=== PATIENT | female | born 1985 | race Caucasian/White ===

== ENCOUNTER 2020-06-22 08:49 | Emergency (ER) | payer OTHER, SELFPAY ==
[2020-06-22 08:57] VITALS: BP 118/70; PULSE 75; RESP 16; TEMP 36.7; O2SAT 100; BMI 21.2
--- NOTE | 2020-06-22 09:16 | XR_ITS ---
EXAMINATION: LEFT WRIST CLINICAL INFORMATION: Fell 3 days ago COMPARISON: None TECHNIQUE: 4 view left wrist FINDINGS: There is no evidence of acute fracture or dislocation of the left wrist. No significant soft tissue swelling appreciated. IMPRESSION: No evidence of fracture or dislocation of the left wrist.
--- NOTE | 2020-06-22 09:17 | ED_ITS ---
HPI - Extremity Problem General Chief complaint: Extremity Injury, Upper Stated complaint: fall l wrist inj Time Seen by Provider: 06/22/20 09:13 Source: patient Mode of arrival: ambulatory Limitations: no limitations History of Present Illness HPI Narrative: Patient states she fell backwards off of a hoverboard 3 days ago landing on her left hand, LINO. She has been icing it and taking ibuprofen but still has extreme pain and difficulty moving her wrist and her hand. She is able to move her fingers and has good sensation in them. She did not hit her head, no LOC. MD Complaint: extremity pain Onset (ago): day(s) Pain Consistency: constant Location: left and upper extremity Severity scale (1-10): 8 Quality: dull and constant Radiation: none Relieving factors: immobilization Exacerbating factors: range of motion and palpation Associated symptoms: denies other symptoms Related Data Allergies Allergy/AdvReac Type Severity Reaction Status Date / Time No Known Allergies Allergy Verified 06/22/20 09:00 Review of Systems Review of Systems: Constitutional: No Fatigue, No Malaise Musculoskeletal: see HPI Skin: No Skin Lesions, No rash, no bruising Neuro: No Weakness, No Numbness, No Paresthesias, No Loss of Consciousness, No Dizziness, No Headache Yes all other systems are reviewed and are negative [facility] Past Medical History Medical History No known health problems Social History Social History Advance Directives: No Advance Directives Information Provided: No Physical Exam Vital Signs: Vital Signs: Vital Signs Temp Pulse Resp BP Pulse Ox 06/22/20 08:57 98.0 F 75 16 118/70 100 Body Mass Index 21.2 Const: General: cooperative, healthy appearing, comfortable, no acute distress and well developed Orientation/consciousness: patient oriented x3 Limitations: no limitations HENMT: Head: Yes normal to inspection Eyes: General: appearance normal, both eyes and all related structures Neck: Neck: Yes normal visual inspection and Yes full ROM Resp: Effort & Inspection: normal respiratory effort and able to speak in complete sentences Skin: General skin exam: no rashes or lesions noted and no ecchymosis Neuro: General: patient oriented x3 Extrem: General: No normal to inspection (left wrist visibly swollen), No full ROM (unable to pronate, supinate left wrist, TTP of Left hand wrist& forearm, ), Yes capillary refill normal and Yes no clubbing, cyanosis or edema Course Course Course Narrative: Patient is a 34-year-old female who fell backwards on her left hand and the FOOSH style 3 days ago, unable to move wrist, will get x-rays of left forearm a wrist and hand. Reviewed alternating ibuprofen and Tylenol for pain relief with patient. MDM - Extremity (Nontraumatic) Imaging Data left wrist x ray: Attestation: I personally reviewed and interpreted this imaging study as follows: My impression: IMPRESSION: No evidence of fracture or dislocation of the left wrist. Radiologist's impression: FINDINGS: There is no evidence of acute fracture or dislocation of the left wrist. No significant soft tissue swelling appreciated. IMPRESSION: No evidence of fracture or dislocation of the left wrist. Discharge Plan Discharge Clinical Impression: Sprain of carpal joint of left wrist, initial encounter Patient Disposition: Home, Self-Care Instructions: Wrist Sprain (ED) Stand Alone Forms: Work/School Release
== END 2020-06-22 09:58 | disposition home or self-care (01) ==
PROVIDERS: Emergency Provider Emergency Medicine; PCP Internal Medicine
DX: S63.512A Sprain of carpal joint of left wrist, initial encounter (principal); V00.131A Fall from skateboard, initial encounter; Y93.51 Activity, roller skating (inline) and skateboarding; Y92.480 Sidewalk as the place of occurrence of the external cause; Y99.9 Unspecified external cause status
CPT/HCPCS: 73110; 99283

== ENCOUNTER 2021-04-09 13:15 | Outpatient (REF) | payer OTHER, SELFPAY ==
[2021-04-10 09:53] LABS: CT PCR NOT DETECTED (Not Detect.); NG PCR NOT DETECTED (Not Detect.)
[2021-04-10 10:08] LABS: BV Int Neg Control Negative (Negative); BV Int Pos Control Positive (Positive)
[2021-04-14 00:16] LABS: HPV 16 RNA NOT DETECTED (NOT DETECTED); HPV mRNA E6/E7 rflx Detected (Not Detected)
== END 2021-04-09 13:16 | disposition home or self-care (01) ==
LOC: HO.LAB 13:15
PROVIDERS: PCP Internal Medicine; Visit Provider Advanced Practice Midwife
DX: Z01.411 Encounter for gynecological examination (general) (routine) with abnormal findings (principal); Z11.51 Encounter for screening for human papillomavirus (HPV); Z11.3 Encounter for screening for infections with a predominantly sexual mode of transmission; R10.2 Pelvic and perineal pain; Z20.2 Contact with and (suspected) exposure to infections with a predominantly sexual mode of transmission; N92.6 Irregular menstruation, unspecified; F17.200 Nicotine dependence, unspecified, uncomplicated; Z71.6 Tobacco abuse counseling
CPT/HCPCS: 81003; 81025; 87480; 87491; 87510; 87591; 87624; 87625; 87660; 88142

== ENCOUNTER 2021-04-10 15:40 | Outpatient (REF) | payer OTHER, SELFPAY ==
--- NOTE | ~2021-04-10 | US_ITS ---
EXAMINATION: US ULTRASOUND PELVIS CLINICAL INFORMATION: Pelvic and perineal pain. COMPARISON: Ultrasound pelvis 10/25/2017. TECHNIQUE: Transabdominal and transvaginal imaging of pelvis is performed. FINDINGS: The uterus is anteverted and anteflexed measuring 7.1 cm in length, 3.3 cm in AP and 4.9 cm in transverse dimension. Endometrial thickness is 0.64 cm. The uterus is homogeneous in echotexture. There is small nabothian cyst in the cervix. Right ovary measures 3.3 x 3.1 x 3.4 cm volume 18.1 mL. There is a complex anechoic cyst measuring 1.5 x 1.5 x 1.5 cm. Previously right ovary measured 3.2 x 2.5 x 2.3 cm. Left ovary measures 2.8 x 2.2 x 2.2 cm and volume 7.1 mL. There is a complex cyst measuring 0.90 x 0.95 x 1.3 cm. Previously left ovary measured 2.3 x 2.9 x 1.6 cm. There is no free fluid in the cul-de-sac. US/US pelvic and transvaginal IMPRESSION: Bilateral complex ovarian cysts with septations. In addition there are small physiological follicles seen. Nabothian cysts in the cervix. The uterus is unremarkable.
== END 2021-04-10 15:41 | disposition home or self-care (01) ==
LOC: HO.HMGCX 15:40
PROVIDERS: PCP Internal Medicine; Visit Provider Advanced Practice Midwife
DX: R10.2 Pelvic and perineal pain (principal)
CPT/HCPCS: 76830; 76856

== ENCOUNTER 2021-04-21 09:55 | Outpatient (REF) | payer OTHER, SELFPAY ==
[2021-04-21 11:14] LABS: Thyroid Stimulating Hormone 0.72 uIU/mL (0.32-4.0)
[2021-04-22 08:07] LABS: Hepatitis B Core Antibody Nonreactive (Nonreactive); ~HepC Num1 0.09 S/CO (0.00-0.79); ~Hepatitis C Antibody Nonreactive (Nonreactive)
[2021-04-22 08:34] LABS: Syphilis Screen Nonreactive (Nonreactive)
[2021-04-22 08:41] LABS: HIV AB/AG Nonreactive (Nonreactive); HIV Num 1 0.06 S/CO (0.00-0.99)
== END 2021-04-21 09:56 | disposition home or self-care (01) ==
LOC: HO.LAB 09:55
PROVIDERS: PCP Internal Medicine; Visit Provider Advanced Practice Midwife
DX: Z01.84 Encounter for antibody response examination (principal); Z11.3 Encounter for screening for infections with a predominantly sexual mode of transmission; Z11.4 Encounter for screening for human immunodeficiency virus [HIV]; Z11.59 Encounter for screening for other viral diseases; N92.6 Irregular menstruation, unspecified; Z20.2 Contact with and (suspected) exposure to infections with a predominantly sexual mode of transmission
CPT/HCPCS: 36415; 84443; 86704; 86780; 86803; 87389

== ENCOUNTER → 2021-04-24 11:39 | Outpatient (BNVA) | payer OTHER, SELFPAY | PROVIDERS: Visit Provider Advanced Practice Midwife ==

== ENCOUNTER 2021-06-25 14:54 | Outpatient (REF) | payer OTHER, SELFPAY ==
[2021-06-25 16:09] LABS: Thyroid Stimulating Hormone 1.73 uIU/mL (0.32-4.0)
== END 2021-06-25 14:55 | disposition home or self-care (01) ==
LOC: HO.LAB 14:54
PROVIDERS: PCP Internal Medicine; Visit Provider Internal Medicine
DX: E03.9 Hypothyroidism, unspecified (principal)
CPT/HCPCS: 36415; 84439; 84443

== ENCOUNTER 2023-06-26 14:42 | Emergency (ER) | payer OTHER, SELFPAY ==
--- NOTE | ~2023-06-26 | XR_ITS ---
EXAMINATION: XR ANKLE, LEFT CLINICAL INFORMATION: Ankle swelling COMPARISON: None available. TECHNIQUE: AP, lateral, and mortise views of the left ankle. FINDINGS: The ankle mortise and subtalar joints are normal. No visible acute fracture or dislocation seen. Mild lateral malleolar soft tissue swelling likely ligamentous small retrocalcaneal enthesophyte is seen XR/XR ankle LT min 3V IMPRESSION: 1. Mild lateral malleolar soft tissue swelling likely ligamentous injury. No visible acute fracture or dislocation seen. 2. Small retrocalcaneal enthesophyte.
--- NOTE | ~2023-06-26 | XR_ITS ---
EXAMINATION: XR FOOT, LEFT CLINICAL INFORMATION: Fall, fifth metatarsal tenderness. COMPARISON: None available. TECHNIQUE: AP, lateral, and oblique views of the left foot. FINDINGS: There is a small bone fragment dorsal and medial to the medial cuneiform bone question avulsion fracture. Exact origin is not known. There is mild dorsal soft tissue swelling. The joint alignment is normal. Ankle mortise and subtalar joints are normal. The tarsometatarsal joint space is maintained normal as well. XR/XR foot LT min 3V IMPRESSION: Small avulsion fracture medial cuneiform bone with mild soft tissue swelling..
--- NOTE | 2023-06-26 14:47 | ED_ITS ---
HPI - Extremity Injury (Lower) General Chief Complaint: Extremity Injury, Lower Stated Complaint: L foot inj Time Seen by Provider: 06/26/23 17:11 Source: patient, RN notes reviewed and old records reviewed Mode of arrival: ambulatory History of Present Illness HPI Narrative: 37-year-old female with past medical history of hypothyroid present to the ED complaining of left foot pain and swelling s/p fall 3 days ago. Patient states she woke up from sleep stood up quickly felt dizzy and fell to ground, denies head trauma or LOC. Denies dizziness/lightheadedness at present, states she got up too fast. Has been minimally ambulatory secondary to pain. Denies numbness, tingling, weakness, injury to the area. MD complaint: foot injury Related Data Home Medications Medication Instructions Recorded Confirmed clonazepam 1 mg tablet 1 mg PO TID PRN 04/09/21 escitalopram oxalate 20 mg tablet 20 mg PO DAILY 04/09/21 levothyroxine 50 mcg tablet 50 mcg PO DAILY 04/09/21 methadone 10 mg tablet 14 mg PO DAILY 04/09/21 Previous Rx's Medication Instructions Recorded vitamin with calcium 1 tab PO DAILY #30 tabs 04/09/21 no.72-iron 27 mg-folic acid 1 mg tablet ( Vitamins Plus Low Iron) Allergies Allergy/AdvReac Type Severity Reaction Status Date / Time No Known Allergies Allergy Verified 04/09/21 13:30 Review of Systems Review of Systems: Constitutional: No Fever, No Chills ENT/Mouth: No Ear Pain, No Nasal Congestion, No sore throat, No Rhinorrhea, No Swallowing Difficulty Cardiovascular: No Chest Pain, No SOB Respiratory: No Cough, No Sputum Gastrointestinal: No Nausea, No Vomiting, No Diarrhea, No Constipation, No Abdominal pain Musculoskeletal: + joint pain, No Myalgias, +Joint Swelling Skin: No Skin Lesions, No rash Neuro: No Weakness, No Numbness, No Paresthesias Yes all other systems are reviewed and are negative Constitutional: Constitutional: Reports as per [facility] Past Medical History Attestation statement: The following information was validated with the patient. Source: old records reviewed Medical History Hypothyroid No known health problems Social History Social History Alcohol intake: current Alcohol intake frequency: holidays/special occasions only Patient Tobacco Use Status: Current everyday Tobacco user Cigarettes Per Day: 10 Advance Directives: No Advance Directives Information Provided: No Sexual orientation: Straight/Heterosexual Gender identity: Female Physical Exam Vital Signs: Vital Signs: Last Vital Signs Temp 98.2 F 06/26/23 14:48 Pulse 82 06/26/23 14:48 Resp 16 06/26/23 14:48 BP 105/71 06/26/23 14:48 Pulse Ox 99 06/26/23 14:48 O2 Del Method Room Air 06/26/23 14:48 BMI result Body Mass Index 21.3 Const: General: cooperative, healthy appearing and no acute distress Orientation/consciousness: patient oriented x3 Limitations: no limitations HEENT: Head: Yes normal to inspection and Yes atraumatic Ears: hearing grossly normal bilaterally General nose exam: Normal external nose present Face and sinus: Yes normal facial exam Eyes: General: appearance normal, both eyes and all related structures EOM: EOMs intact bilaterally Neck: Neck: Yes normal visual inspection and Yes no meningeal signs Resp: Effort & Inspection: normal respiratory effort and no respiratory distress Cardio: Rate: regular rate Skin: Rashes: no rashes Wounds: no wounds Neuro: General: patient oriented x3, tone normal and no meningeal signs Cranial nerves: Yes CN's II-XII intact bilaterally Gait exam (Neuro): Normal gait present Extrem: Other: + left foot and ankle with noted swellin g. Ecchymosis to plantar aspect of foot. Diffusely tender to palpation greatest to proximal metatarsals. No erythema/warmth. Neurovascularly intact. Knee nontender. No crepitus Course Course Course Narrative: This is a rapid medical exam: Additional HPI, ROS, PE not included below will be deferred to primary provider. Patient is a 37-year-old female presenting to the emergency department with complaint of left foot pain. States she was getting out of bed Laz and stood up fast, lost balance, causing her to fall. Denies head strike or loss of consciousness. Reports ongoing pain and swelling to left lateral foot, pain increases with weight bearing or palpation. 2+ PT pulse. Plan: X-ray 1715--XR foot LT min 3V IMPRESSION: Small avulsion fracture medial cuneiform bone with mild soft tissue swelling. 1745--XR ankle LT min 3V IMPRESSION: 1. Mild lateral malleolar soft tissue swelling likely ligamentous injury. No visible acute fracture or dislocation seen. 2. Small retrocalcaneal enthesophyte. > patient placed in posterior short-leg splint and supplied with crutches. Is to follow up with Orthopedics Results discussed with patient including worrisome signs and symptoms and st rict return precautions, and when to return to the emergency department. They verbalized understanding and feel safe for discharge at this time. Medical Decision Making Medical Decision Making MDM Narrative: 37-year-old female with past medical history of hypothyroid present to the ED complaining of left foot pain and swelling s/p fall 3 days ago. On exam vital signs stable, NAD, nontoxic appearing, physical exam as above. Concern for fracture versus sprain. Low suspicion for DVT. Plan: X-rays Please refer to course for remaining clinical decision making, interpretation of labs/imaging results, and discussions with consultants and/or family members. Differential Diagnosis Differential Diagnoses: The differential diagnosis associated with the presentation includes As above Independent Interpretation I performed an independent interpretation of an: Plain X-Ray Radiology Impression Discussion of test interpretation with radiology: I have reviewed the radiologist's reading. Independent Historian Clinical information obtained from an independent historian. History obtained from or confirmed by: Parent External Record Review External record reviewed: Inpatient record, Office record, Outpatient record, Prior outpatient labs, Prior outpatient radiology, Primary care record and Outside ED record Tests considered The following testing was considered but not selected: As above Prescription Management I considered prescription management with: Pain Medication Discharge Plan Discharge Clinical Impression: Fracture of medial cuneiform bone of left foot Patient Disposition: Home, Self-Care Instructions: Foot Fracture in Adults (ED) Additional Instructions: You have an avulsion fracture of your medial cuneiform bone Keep splint on, dry and clean Ice and elevate Use crutches Do not bear any weight on your left foot until you see the specialist Call the industrial specialist tomorrow to make an appointment for 1 week/soonest available If toes become increasingly swollen/numb, discolored, pain is unbearable remove splint return to the ED immediately Take Tylenol and Motrin at home for pain and swelling Prescriptions: No Action levothyroxine 50 mcg tablet 50 mcg PO DAILY escitalopram oxalate 20 mg tablet 20 mg PO DAILY clonazepam 1 mg tablet 1 mg PO TID PRN methadone 10 mg tablet 14 mg PO DAILY Vitamin Plus Low Iron 27 mg iron- 1 mg tablet 1 tab PO DAILY Qty: 30 11RF Referrals: [facility] [Provider Group] - 1 week Stand Alone Forms: Work/School Release
[2023-06-26 14:48] VITALS: BP 105/71; PULSE 82; RESP 16; TEMP 36.8; O2SAT 99; BMI 21.3
--- NOTE | 2023-06-26 17:23 | PC.NURSE ---
elevated effected extremity on pillow, ice applied for comfort
--- NOTE | 2023-06-26 18:38 | MHC.EDTECH ---
Posterior short leg splint placed on pt's left foot. Pt had fair toleration of placement. DARLYN Velázquez in to evaluate. RN aware.
== END 2023-06-26 19:06 | disposition home or self-care (01) ==
PROVIDERS: Emergency Provider Internal Medicine; PCP Internal Medicine
DX: S92.242A Displaced fracture of medial cuneiform of left foot, initial encounter for closed fracture (principal); M79.672 Pain in left foot; X58.XXXA Exposure to other specified factors, initial encounter; Y93.9 Activity, unspecified; Y92.9 Unspecified place or not applicable; Y99.9 Unspecified external cause status
CPT/HCPCS: 73610; 73630; 99282; 99283

== ENCOUNTER 2023-07-01 11:13 | Outpatient (AMB) | payer OTHER, SELFPAY ==
--- NOTE | 2023-07-01 11:23 | A.OFFVIS_ITS ---
Intake Vital Signs 07/01/23 11:37 Height 5 ft 8 in Weight 140 lb BMI 21.3 Intake Visit Reasons: fc- Fracture of medial cuneiform bone of left foot Intake Note: Destini proctor 37 year old female presents today for an ER follow up of left foot, DOI 06/24/23. Patient reports when she was getting out of bed she stood up fast, lost balance, causing her to fall. Presented [place] [facility] [place] few days later where she was placed in a spling and referred to orthopedic. Currently most of her pain comes at night, waking up with tight spasm sensations and will have to get out of be and move around. Denies numbness or tingling. Finds relief with Tylenol. Allergies No Known Allergies Allergy (Verified 04/09/21 13:30) HPI fc- Fracture of medial cuneiform bone of left foot HPI Details 37-year-old female who presents to the [facility] today for an ER follow-up of left foot injury s/p fall while getting out of her bed when she stood up fast and lost balance, 06/24/23. She was seen at ED a few days later where she was placed in a splint and referred to orthopedics. She currently states she has pain and tight spasms in her foot at night which makes her unable to sleep and makes her to get out of bed and move around. She denies any numbness or tingling. She finds relief with Tylenol. [facility] Medical History Hypothyroid No known health problems Social History (Updated 07/01/23 @ 11:38 by Angeli Munguia Vianney) Alcohol intake: current Alcohol intake frequency: holidays/special occasions only Patient Tobacco Use Status: Current everyday Tobacco user Cigarettes Per Day: 10 Current occupational status: employed Current occupation: ENT surgeons-forest officer Sexual orientation: Straight/Heterosexual Gender identity: Female Review of Systems Const All systems reviewed & are unremarkable except as noted in HPI and below Physical Exam Vital Signs: BMI result Body Mass Index 21.3 Const General: cooperative and no acute distress Orientation/consciousness: patient oriented x3 Resp Effort & Inspection: normal respiratory effort and able to speak in complete sentences Cardio Peripheral pulses: Peripheral pulses 2+ throughout Neuro General: patient oriented x3 Extrem Other: Left foot: Normal to inspection. She does have significant bruising along the dorsum of the foot which extends in to the medial edge of the foot. She does have tenderness at the base of the 2nd metatarsal. No pain along the Lisfranc region. No pain along the base of the 5th metatarsal. No pain along the medial or lateral aspect of ankle. No pain along the syndesmosis. Her ankle rests in a plantar flex position. She can dorsiflex with assistance and she is able to actively plantar flex. NVI. Office Procedures Fracture Care Fracture Billing Code: Fracture Billing Code Results Reviewed Results Reviewed: X-rays of the left foot obtained on June 26 show a small evulsion fracture of medial cuneiform bone. I also appreciate a subtle cortical abnormality along at the base of the 2nd metatarsal. Assessment & Plan Assessment & Plan (1) Metatarsal fracture: Code(s): S92.309A - Fracture of unspecified metatarsal bone(s), unspecified foot, initial encounter for closed fracture Qualifiers: Encounter type: initial encounter Metatarsal bone: unspecified metatarsal Fracture type: closed Fracture alignment: nondisplaced Laterality: left Qualified Code(s): S92.302A - Fracture of unspecified metatarsal bone(s), left foot, initial encounter for closed fracture Plan She was placed in a tall boot weight bearing as tolerated. She can come out of the boot for resting, icing and elevating. She will continue with ibuprofen three times a day and I did encourage her to work on some home exercises to improve her ROM. She will also begin a course of physical therapy within the next 2 weeks. I would like to see her back in 4 weeks with new x-rays, sooner if needed. She will continue to work with instructions to allow patient to ice and elevate throughout the day. Orders: Orders PT Evaluation and Treatment 07/01/23 S92.309A - Fracture of unspecified metatarsal bone(s), unspecified foot, initial encounter for closed fracture Patient Instructions: Scribed for Tiff Guzman PA-C, by Mitchell Uriarte medical coordinator pesticide use, on 07/01/2023 at 11:30 AM EST. ITiff PA-C, have personally reviewed and agree with the information entered by the scribe. Coding Level of Care Code New Pt Level 3 (00937) Diagnoses Closed nondisplaced fracture of metatarsal bone of left foot, unspecified metatarsal, initial encounter S92.302A Encounter type: initial encounter Metatarsal bone: unspecified metatarsal Fracture type: closed Fracture alignment: nondisplaced Laterality: left CPT Codes Fracture Care - Fracture Billing Code: Fracture Billing Code ([id number])
[2023-07-01 11:37] VITALS: BMI 21.3
== END 2023-07-01 12:12 | disposition home or self-care (01) ==
PROVIDERS: PCP Internal Medicine; Visit Provider Physician Assistant
DX: S92.245A Nondisplaced fracture of medial cuneiform of left foot, initial encounter for closed fracture (principal); S92.302A Fracture of unspecified metatarsal bone(s), left foot, initial encounter for closed fracture
CPT/HCPCS: 99203

== ENCOUNTER → 2023-07-01 11:13 | Outpatient (BNVA) | payer OTHER, SELFPAY | PROVIDERS: PCP Internal Medicine; Visit Provider Physician Assistant ==

== ENCOUNTER 2023-08-01 08:18 | Outpatient (AMB) | payer OTHER, SELFPAY ==
--- NOTE | 2023-08-01 08:34 | A.OFFVIS_ITS ---
Intake Vital Signs 08/01/23 08:38 Height 5 ft 8 in Weight 140 lb BMI 21.3 Intake Visit Reasons: ov- left foot fx w xrays Intake Note: Destini 37 yr old female presents today for her follow up visit for her fracture of metatarsal bone of left foot 06/24/23. States she is doing well. Patient reports applying pressure ot her foot as tolerated however she feels scared to put her full weight with out further instruction. Allergies No Known Allergies Allergy (Verified 08/01/23 08:37) HPI ov- left foot fx w xrays HPI Details 37-year-old female who returns to the [facility] today for a follow-up of left foot fracture, 06/24/23. She states she is doing well and is able to apply some pressure on her foot as tolerated. Her pain is aggravated at night and she elevates her leg at night with benefits. She is doing well overall and has no other concerns. [facility] Medical History Hypothyroid No known health problems Alcohol intake: current Alcohol intake frequency: holidays/special occasions only Patient Tobacco Use Status: Current everyday Tobacco user Cigarettes Per Day: 10 Current occupational status: employed Current occupation: ENT surgeons-hospital security officer Sexual orientation: Straight/Heterosexual Gender identity: Female Review of Systems Const All systems reviewed & are unremarkable except as noted in HPI and below Physical Exam Vital Signs: BMI result Body Mass Index 21.3 Const General: cooperative and no acute distress Orientation/consciousness: patient oriented x3 Resp Effort & Inspection: normal respiratory effort and able to speak in complete sentences Cardio Peripheral pulses: Peripheral pulses 2+ throughout Neuro General: patient oriented x3 Extrem Other: Left foot: Normal to inspection. No bruising along the dorsum of the foot. She has improving tenderness at the base of the 2nd metatarsal. No pain along the Lisfranc region. No pain along the base of the 5th metatarsal. No pain along the medial or lateral aspect of ankle. No pain along the syndesmosis. Her ankle rests in a plantar flex position. She can dorsiflex with assistance and she is able to actively plantar flex. NVI. Results Reviewed Results Reviewed: X-rays of the left foot obtained today show a small avulsion fracture of medial cuneiform bone. Stable subtle cortical abnormality along at the base of the 2nd metatarsal. Assessment & Plan Assessment & Plan (1) Metatarsal fracture: Code(s): S92.309A - Fracture of unspecified metatarsal bone(s), unspecified foot, initial encounter for closed fracture Qualifiers: Encounter type: subsequent encounter Fracture alignment: nondisplaced Fracture type: closed Laterality: left Metatarsal bone: unspecified metatarsal Fracture healing: with routine healing Qualified Code(s): S92.302D - Fracture of unspecified metatarsal bone(s), left foot, subsequent encounter for fracture with routine healing Plan She will increase activity as tolerated weening from her boot into a regular street shoe based on comfort. She is unable to attend physical therapy due to her work schedule therefore I have given her a handout of home exercises in the office today. If symptoms persist or worsens, patient will contact the office, otherwise follow-up as needed. Orders: Orders XR foot LT min 3V Today M79.672 - Pain in left foot Patient Instructions: Scribed for Tiff Guzman PA-C, by Mitchell Uriarte medical records technician, on 08/01/2023 at 8:30 AM EST. I, Tiff Guzman PA-C, have personally reviewed and agree with the information entered by the scribe. Coding Level of Care Code Global (96795) Diagnoses Closed nondisplaced fracture of metatarsal bone of left foot with routine healing, unspecified metatarsal, subsequent encounter S92.302D Encounter type: subsequent encounter Fracture alignment: nondisplaced Fracture type: closed Laterality: left Metatarsal bone: unspecified metatarsal Fracture healing: with routine healing
[2023-08-01 08:38] VITALS: BMI 21.3
== END 2023-08-01 08:55 | disposition home or self-care (01) ==
PROVIDERS: PCP Internal Medicine; Visit Provider Physician Assistant
DX: S92.302D Fracture of unspecified metatarsal bone(s), left foot, subsequent encounter for fracture with routine healing (principal)
CPT/HCPCS: 99213

== ENCOUNTER 2023-08-01 10:34 | Outpatient (REF) | payer OTHER, SELFPAY ==
--- NOTE | ~2023-08-01 | XR_ITS ---
EXAMINATION: XR FOOT, LEFT CLINICAL INFORMATION: Pain COMPARISON: Left foot radiograph from 06/27/2023 TECHNIQUE: AP, lateral, and oblique views of the left foot. FINDINGS: Redemonstration of ossific focus along the medial margin of the medial cuneiform/base of the first metatarsal/first tarsal metatarsal joint which may represent sequela of remote trauma versus arthritic changes. Correlation with point tenderness. Joint space alignment are otherwise maintained. Soft tissues are unremarkable. XR/XR foot LT min 3V IMPRESSION: 1. Redemonstration of ossific focus along the medial margin of the medial cuneiform/base of the first metatarsal/first tarsal metatarsal joint which may represent sequela of remote trauma versus arthritic changes. Correlation with point tenderness. 2. Joint space alignment are otherwise maintained. 3. Soft tissues are unremarkable. 4. If high clinical concern for Lisfranc injury consider further evaluation with MRI.
== END 2023-08-01 10:35 | disposition home or self-care (01) ==
LOC: HO.HOSX 10:34
PROVIDERS: Visit Provider Physician Assistant
DX: S92.302D Fracture of unspecified metatarsal bone(s), left foot, subsequent encounter for fracture with routine healing (principal); M79.672 Pain in left foot; X58.XXXD Exposure to other specified factors, subsequent encounter
CPT/HCPCS: 73630; 99212

== ENCOUNTER 2023-09-01 08:06 | Outpatient (RCR) | payer OTHER, SELFPAY ==
--- NOTE | 2023-09-01 17:54 | MHC.PT.EP ---
[facility] [place] [facility] [place] [facility] [place] Office [address] [phone] F: [phone] F: [phone] F: [phone] F: [phone] Physical Therapy Plan of Care Date of Evaluation: 09/01/23 Date of Surgery: Diagnosis: L foot metatarsal fracture. 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 Pt is deemed an appropriate candidate to receive skilled PT services to address their physical impairments in order to improve their functional ability. Frequency and Duration: The patient will be seen 2 x / wk x 5 wks. Short Term Goals: Initiate home program. Improve baseline pain with activity to < 4/10; initial: 6/10. Exploration Geologist Goals: I with home program. Improve LEFI outcome measure by at least 9 points. Pt will be able to walk a mile with managed Sx; initial: moderate difficulty. Pt will be able to negotiate 1 fl of stairs with managed Sx and w/.o compensation; initial: moderate difficulty and compensated strategy. Treatment Plan: Modalities to reduce pain, spasms and effusion. Manual therapy to restore motion and function. Therapeutic exercise to improve strength and flexibility. Neuromuscular re-education for posture and balance. Therapeutic activities to return to functional activities of daily living. Electronically signed by: Judson Dunn PT. Please sign and return to therapist. Thank you for your referral.
== END 2023-10-20 10:24 | disposition home or self-care (01) ==
LOC: HO.PT 08:06
PROVIDERS: PCP Internal Medicine; Visit Provider Physician Assistant
DX: S92.302A Fracture of unspecified metatarsal bone(s), left foot, initial encounter for closed fracture (principal)
CPT/HCPCS: 97110; 97161

== ENCOUNTER 2023-10-06 16:26 | Outpatient (REF) | payer OTHER, SELFPAY ==
[2023-10-06 16:43] LABS: MANUAL DIFF FLAG NO
[2023-10-06 17:02] LABS: Basophils Absolute Auto 0.1 X10*3/uL (0.0-0.2); Basophils Percent Auto 0.6 % (0-2); Eosinophils Absolute Auto 0.1 X10*3/uL (0.0-0.4); Eosinophils Percent Auto 1.1 % (0-4); Hematocrit 37.4 % (37.0-47.0); Hemoglobin 12.9 g/dl (12.0-16.0); Imm Gran Abs Auto 0.02 X10*3/uL (0.00-0.03); Imm Gran Pct Auto 0.2 % (0.0-0.4); Lymphocytes Absolute Auto 3.3 X10*3/uL (1.2-4.9); Lymphocytes Percent Auto 40.6 % (20-40); Mean Corpuscular HGB Conc 34.5 g/dl (31.0-35.0); Mean Corpuscular Hemoglobin 31.1 pg (27.0-33.0); Mean Corpuscular Volume 90.1 fL (80.0-98.0); Mean Platelet Volume 9.6 fL (9.4-12.3); Monocytes Absolute Auto 0.4 X10*3/uL (0.1-1.2); Neutrophils Absolute Auto 4.3 x10*3/uL (2.0-8.3); Neutrophils Percent Auto 52.5 % (45-73); Platelet Count 251 X10*3/uL (160-400); Red Blood Count 4.15 X10*6/uL (4.20-5.50); Red Cell Distribution Width 12.2 % (11.0-16.0); White Blood Count 8.1 X10*3/uL (4.8-10.8)
[2023-10-06 17:25] LABS: Alanine Aminotransferase 21 U/L (0-31); Albumin Level 4.4 g/dL (3.5-5.0); Alkaline Phosphatase 83 U/L (39-117); Anion Gap 11 (12-20); Aspartate Amino Transferase 19 U/L (5-31); Bilirubin Total 0.2 mg/dL (0.0-1.0); Blood Urea Nitrogen 6 mg/dL (9-16); Calcium 9.4 mg/dL (8.4-10.2); Carbon Dioxide 32 mmol/L (22-29); Chloride 104 mmol/L (96-108); Cholesterol 149 mg/dL (<200); Estimated Glomerular Filt Rate > 60; Glucose Random 102 mg/dL (60-115); Potassium 4.1 mmol/L (3.3-5.1); Sodium 143 mmol/L (135-145); Total Protein 6.9 g/dL (6.5-8.0)
[2023-10-06 17:40] LABS: Free T4 (Free Thyroxine) 1.05 ng/dL (0.71-1.85); Thyroid Stimulating Hormone 2.76 uIU/mL (0.32-4.0)
== END 2023-10-06 16:27 | disposition home or self-care (01) ==
LOC: HO.LAB 16:26
PROVIDERS: PCP Internal Medicine; Visit Provider Internal Medicine
DX: E03.9 Hypothyroidism, unspecified (principal); R63.5 Abnormal weight gain; R53.83 Other fatigue
CPT/HCPCS: 36415; 80053; 82465; 84439; 84443; 85025

== ENCOUNTER 2024-01-13 14:32 | Outpatient (REF) | payer OTHER, SELFPAY ==
[2024-01-13 15:34] LABS: Influenza A PCR NEGATIVE (Negative); Influenza B PCR NEGATIVE (Negative); Resp Syncy Virus RNA Qual PCR NEGATIVE (Negative); SARS COV2 PCR INHOUSE NEGATIVE (Negative)
== END 2024-01-13 14:33 | disposition home or self-care (01) ==
LOC: HO.LAB 14:32
PROVIDERS: PCP Internal Medicine; Visit Provider Internal Medicine
DX: R05.9 Cough, unspecified (principal)
CPT/HCPCS: 0241U